=== PATIENT | male | born 2000 | race Caucasian/White ===

== ENCOUNTER 2024-08-17 01:04 | Emergency (ER) | payer OTHER, SELFPAY ==
[2024-08-17 01:06] VITALS: BP 139/64; PULSE 79; RESP 18; TEMP 36.6; O2SAT 96; BMI 23.7
[2024-08-17] MEDS: 0.9% Normal Saline (1000mL) 1,000 ML 999 ML IV (01:50)
[2024-08-17] MEDS: Ondansetron 4 MG/2 ML Vial IV (01:50)
[2024-08-17 02:19] LABS: AST(SGOT) 25 U/L (15-37); Alanine Aminotransfer ALT/SGPT 22 U/L (16-61); Albumin, Serum 5.1 g/dL (3.2-5.0); Alkaline Phosphatase 67 U/L (45-117); Anion Gap 9 (5-15); BUN 23 mg/dL (7-18); BUN/Creat Ratio 16.4 RATIO (10-20); Bilirubin, Direct 0.19 mg/dL (0.00-0.30); Chloride 104 mmol/L (98-107); EST Glomerular Filtration Rate 67 mL/min (>60); Est Glom Filt Rate - Afr Amer 81 mL/min (>60); Estimated Creatinine Clearance 112.38 ml/min; Globulin 3.6 g/dL (2.2-4.2); Glucose 107 mg/dL (74-106); Lipase 26 U/L (13-75); Magnesium 2.1 mg/dL (1.6-2.6); Potassium 4.1 mmol/L (3.5-5.1); Protein, Total 8.7 g/dL (6.4-8.2); Sodium Level 138 mmol/L (136-145)
--- NOTE | 2024-08-17 02:58 | EDS_ITS ---
HPI History of Present Illness Chief Complaint: Nausea/Vomiting Informant: patient and spouse/S.O. Narrative Narrative: Patient is a 24-year-old male with no significant past medical history. He states he was with his significant other's evening they went to the [facility]. After returning home he began having generalized abdominal discomfort with bouts of nausea and vomiting. He states he ate at the school cafeteria but did not have anything at the [facility]. He denies any known sick contact. He states he has been having bouts of vomiting for the last few hours and cannot keep food or fluid down and therefore comes in for evaluation [facility] Medical History no medical history no medical history Home Medications ?Medication ?Instructions ?Recorded ?Last Taken ?Type ondansetron 4 mg disintegrating 4 mg PO TID PRN nausea and 08/17/24 Unknown Rx tablet vomiting #21 tabs Allergy/AdvReac Type Severity Reaction Status Date / Time No Known Allergies Allergy Verified 08/17/24 01:05 Family History no significant family his Surgical History no surgical history Social History Smoking Status: Never smoker ROS [facility] ED Constitutional Constitutional ED: Denies chills or fever(s) Eyes Eyes: Denies change in vision ENT ENT ED: Denies sore throat Cardiovascular Cardiovascular: Denies chest pain Respiratory/Chest Respiratory/Chest: Denies cough or dyspnea Gastrointestinal Gastrointestinal: Reports abdominal pain, nausea and vomiting; Denies diarrhea Musculoskeletal Musculoskeletal: Denies myalgias Integumentary Denies rash Neurologic Neurologic: Denies headache(s) Hematologic/Lymphatic Hematologic/Lymphatic: Denies easy bleeding or easy bruising EXAM Physical Exam Const Vital Signs: 08/17/24 01:06 08/17/24 03:04 08/17/24 03:05 Temperature 97.8 F 98.3 F Temperature Source Oral Pulse Rate 79 72 72 Respiratory Rate 18 16 18 Blood Pressure 139/64 H 154/90 H 154/90 H Blood Pressure Mean 89 111 111 Pulse Ox 96 100 100 Oxygen Delivery Method Room Air Room Air Positive well nourished and well developed General Appearance ED: well developed; Negative for pallor HEENT HEENT Narrative: Mucous membranes are slightly dry and tacky No tongue or lip swelling no oral lesions no airway edema or compromise No findings in the posterior pharynx to suggest infection Eyes PERRL and EOMs intact bilaterally General Eye ED: Negative for scleral icterus Neck supple Neck Narrative: No nuchal rigidity or meningeal signs Resp normal respiratory effort and clear to auscultation bilaterally Cardio regular rate and regular rhythm GI non-distended and no masses GI Narrative: Abdomen is soft and nondistended with hyperactive bowel sounds There is mild diffuse pain on palpation greatest in the midepigastric region without voluntary guarding or rigidity No pulsatile mass or fluid wave Negative heel strike psoas and obturator signs Negative Montaño sign Auscultation: hyperactive bowel sounds Palpation: soft Extremity normal to inspection Neuro oriented x3, CN's II-XII intact bilaterally and no sensory deficits noted Sensorium / Orientation: alert Motor Exam: strength 5/5 throughout Psych mental status grossly normal Skin no rashes or lesions noted and skin turgor normal General Skin Exam: Negative for jaundice or pallor MDM MDM MDM Narrative Medical decision making narrative: Patient arrived to ER with stable vitals and a soft nonsurgical abdomen. History and exam is most consistent with a viral stomach infection such as norovirus or rotavirus. The pain in the midepigastric region he could also have pancreatitis versus biliary colic or acute cholecystitis. With the patient's recurrent bouts of vomiting and results concern for electrolyte abnormality or acute kidney injury. Secondary to his basic labs were obtained. Labs revealed mild elevation of the creatinine consistent with mild dehydration but otherwise no clinically significant finding. After receiving IV hydration and Zofran patient reported resolution of his symptoms and had no further bouts of vomiting. Therefore with resolution of symptoms and overall negative workup there is no need for further evaluation in the ER and he is otherwise safe for discharge History & Record Review Discussion w/independent historian: Patient and Significant other Lab Data Attestation: I reviewed the patient's lab results. Labs: Laboratory Results - last 24 hr 08/17/24 01:07 Sodium 138 Potassium 4.1 Chloride 104 Carbon Dioxide 26.0 Anion Gap 9 BUN 23 H Creatinine 1.40 H Estim Creat Clear Calc 112.38 Est GFR (MDRD) Af Amer 81 Est GFR (MDRD) Non-Af 67 BUN/Creatinine Ratio 16.4 Glucose 107 H Calcium 10.0 Magnesium 2.1 Total Bilirubin 0.70 Direct Bilirubin 0.19 AST 25 ALT 22 Alkaline Phosphatase 67 Total Protein 8.7 H Albumin 5.1 H Globulin 3.6 Lipase 26 Discharge Plan Triage Chief Complaint: Nausea/Vomiting Other Complaint: Abd Pain ED Provider: Andes,Cb Dx/Rx/DC Orders Clinical Impression: Nausea & vomiting, Dehydration Instructions: ED Dehydration (Adult), ED Gastroenteritis, Viral (Adult) Prescriptions: New ondansetron 4 mg tablet,disintegrating 4 mg PO TID PRN (Reason: nausea and vomiting) Qty: 21 0RF Activity Restrictions/Additional Instructions: Your exam and workup indicate you have a viral stomach infection. This will last anywhere from 12 hours to 7/10 days. The average timeframe is 3 days. Use Zofran to control your nausea take Tylenol and or Motrin for pain control and keep yourself well-hydrated. Return to the ER should you have any further concern Print Language: Egyptian Disposition Disposition: Home, Self Care Discharge Date/Time: 08/17/24 03:17
[2024-08-17 03:04] VITALS: BP 154/90; PULSE 72; RESP 16; TEMP 36.8; O2SAT 100
[2024-08-17 03:05] VITALS: BP 154/90; PULSE 72; RESP 18; O2SAT 100
== END 2024-08-17 03:17 | disposition home or self-care (01) ==
PROVIDERS: Emergency Provider Emergency Medicine; Visit Provider Emergency Medicine
DX: R10.13 Epigastric pain (principal); E86.0 Dehydration; R11.2 Nausea with vomiting, unspecified; R10.84 Generalized abdominal pain
CPT/HCPCS: 80048; 80076; 83690; 83735; 96361; 96374; 99283; A4216; J2405